=== PATIENT | female | born 1960 | race Caucasian/White ===

== ENCOUNTER 2021-02-14 14:43 | Emergency (ER) | payer OTHER ==
[~2021-02-14] VITALS: Ht 162.6 cm; Wt 72.6 kg
[2021-02-14 16:19] VITALS: BP 113/65
== END 2021-02-14 16:20 | disposition home or self-care (01) ==
LOC: ER 14:43
DX: S61.012A Laceration without foreign body of left thumb without damage to nail, initial encounter (principal); E03.9 Hypothyroidism, unspecified; Z88.8 Allergy status to other drugs, medicaments and biological substances; W25.XXXA Contact with sharp glass, initial encounter; Y93.89 Activity, other specified; Y92.89 Other specified places as the place of occurrence of the external cause; Y99.8 Other external cause status